=== PATIENT | female | born 1970 | race Asian ===

== ENCOUNTER 2017-09-26 07:20 | Emergency (ER) | payer OTHER ==
[~2017-09-26] VITALS: Ht 157.5 cm; Wt 68.2 kg
[2017-09-26] MEDS ORDERED: PROP50TA3 PO (07:46)
[2017-09-26] MEDS ORDERED: PROP10TA73 PO (07:46)
[2017-09-26] MEDS ORDERED: KETOROLAC TROMETHAMINE 30 MG/ML VIAL IM ONE (08:00)
[2017-09-26 08:49] VITALS: BP 166/101
== END 2017-09-26 09:48 | disposition home or self-care (01) ==
LOC: EMS 07:22 → EDSEX 07:22 → EMS 09:48
DX: S00.83XA Contusion of other part of head, initial encounter (principal); S19.9XXA Unspecified injury of neck, initial encounter; I10 Essential (primary) hypertension; E05.90 Thyrotoxicosis, unspecified without thyrotoxic crisis or storm; Z88.8 Allergy status to other drugs, medicaments and biological substances; V43.52XA Car driver injured in collision with other type car in traffic accident, initial encounter; Y93.89 Activity, other specified; Y92.89 Other specified places as the place of occurrence of the external cause; Y99.8 Other external cause status
CPT/HCPCS: 72040; 96372; 99284; J1885